=== PATIENT | female | born 1970 | race Two or more races ===

== ENCOUNTER → 2020-05-13 | Outpatient (CLI) | payer OTHER ==
--- NOTE | 2020-05-13 19:26 | Diagnostic Imaging Report ---
Examination: CT Face and Orbits without Contrast History:^[id number] ^1800 ^EYELID RETRACTION RT UPPER EYELID Comparison studies: None Technique: Axial images were obtained through the maxillofacial region. Coronal and sagittal reconstructions obtained from the axial data. Dose modulation, iterative reconstruction, and/or weight based adjustment of the mA/kV was utilized to reduce the radiation dose to as low as reasonably achievable. Intravenous contrast: None Findings: Soft tissues: No abnormalities. Bones: No fractures or bony abnormalities. Orbits: Globes: Intact Extra or intraconal abnormalities: None. Paranasal sinuses: Partially opacified left maxillary sinus. IMPRESSION: No acute facial abnormality. Signed by: Dr. Karyna Briscoe M.D. on 05/13/2020 7:22 PM
== END ==
LOC: CT 17:37
PROVIDERS: ATTEND Ophthalmology
DX: H02.531 Eyelid retraction right upper eyelid (principal); Z13.5 Encounter for screening for eye and ear disorders
CPT/HCPCS: 70480; 70486